=== PATIENT | male | born 1985 | race Caucasian/White ===

== ENCOUNTER 2019-01-26 11:59 | Day surgery (SDC) | payer BC ==
[2019-01-26 12:27] VITALS: TEMP 97.8
[2019-01-26] MEDS ORDERED: SODIUM CHLORIDE 0.9% FLUSH 10 ML SOL IV ONE ×2 (13:09→13:13)
[2019-01-26] MEDS: MIDAZOLAM 2 MG/2 ML SOL ONE ×2 (13:09→13:13)
[2019-01-26] MEDS: FENTANYL 100MCG/2ML SOL ONE ×2 (13:09→13:13)
[2019-01-26] MEDS: DEXAMETHASONE SOD PHOS PF 10 MG/ML SOL IJ ONE ×2 (13:14→13:19)
[2019-01-26 13:29] VITALS: PULSE 63; RESP 14; O2SAT 93
[2019-01-26 14:13] VITALS: BP 142/83
== END 2019-01-26 13:52 | disposition home or self-care (01) ==
LOC: SURG 11:59
PROVIDERS: ATTEND Nurse Anesthetist, Certified Registered
DX: M51.17 Intervertebral disc disorders with radiculopathy, lumbosacral region (principal)
CPT/HCPCS: J2250; J3010; J1100